=== PATIENT | female | born 1970 | race Caucasian/White ===

== ENCOUNTER 2024-09-03 09:39 | Outpatient (RCR) | payer MEDICAID, SELFPAY | END 2024-09-06 23:59 | disposition home or self-care (01) | LOC: SCTC 09:39 | PROVIDERS: PCP Family Medicine; Referring Provider Family Medicine; Visit Provider Internal Medicine Hematology & Oncology | DX: E53.8 Deficiency of other specified B group vitamins (principal) | CPT/HCPCS: 96372; J3420 ==

== ENCOUNTER 2024-10-06 11:51 | Emergency (ER) | payer MEDICAID, SELFPAY ==
[2024-10-06] VITALS (12 sets, daily range): BP systolic 125–175; BP diastolic 79–92; PULSE 55–84; RESP 10–18; TEMP 36.8–37.1; O2SAT 95–99; BMI 25.3
--- NOTE | 2024-10-06 | XR_ITS ---
MRI abdomen, without contrast. MRCP Date and time of exam: October 06, 2024 1759 hrs. Indications: Abdominal pain nausea vomiting chest pain beginning 3:00 AM this morning, elevated transaminase on liver function tests today Technique: Multiple axial and coronal images of the abdomen have been obtained with the Siemens 1.5T MRI scanner. Images obtained included T1 weighted transverse images, T2-weighted transverse images, T2-weighted transverse images fat-suppressed, T2 weighted haste fat suppressed transverse images, T1 weighted images, in and out of phase images, T2-weighted coronal images, breath hold, T2 weighted haze coronal images as well as T2 weighted coronal thick slab images, MRCP. Findings: Intrahepatic biliary tract dilatation Enlarged common hepatic duct 16 mm common bile duct 7 mm Abrupt tapering of the distal common bile duct, coronal image 15, no definite impacted stone No pancreatic mass or peripancreatic edema The proximal pancreatic duct is dilated up to 8 mm Spleen is not enlarged No hydronephrosis Aorta normal size No ascites Impression: Extrahepatic biliary tract dilatation with abrupt tapering of the common bile duct and dilatation of the proximal pancreatic duct Recommend ERCP follow-up to exclude malignant stricture at the ampulla
--- NOTE | 2024-10-06 11:54 | EKG_ITS ---
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
--- NOTE | 2024-10-06 12:12 | PD.EDRME ---
Rapid Medical Screening Exam RME Arrival date/time: 10/06/24 11:51 53-year-old female presents to the emergency department today complaints of nausea, vomiting, abdominal pain and chest pain ongoing since 3 AM Chief Complaint: Chest Pain Vital signs: Vital Signs Temperature 98.5 F 10/06/24 12:09 Pulse Rate 84 10/06/24 12:09 Respiratory Rate 18 10/06/24 12:09 Blood Pressure 154/92 H 10/06/24 12:09 Pulse Oximetry (%) 99 10/06/24 12:09 Oxygen Delivery Method Room Air 10/06/24 12:09
[2024-10-06 12:52] LABS: Collection Type, Urine Clean Catch
[2024-10-06] MEDS: ONDANSETRON ODT 4 MG TABRAP PO (12:54)
[2024-10-06 13:08] LABS: Basophils % (Auto) 0 % (0-2.5); Eosinophils % (Auto) 0 % (0-10); Hematocrit 43.6 % (36.0-46.0); Hemoglobin 14.4 g/dL (12.0-16.0); Immature Granulocytes % (Auto) 0 % (0-0); Immature Granulocytes Auto 0.01 Thou/mm3 (0.00-0.00); Lymphocytes # (Auto) 0.4 Thou/mm3 (1.0-4.8); Lymphocytes % (Auto) 8 % (10-50); Mean Corpuscular Hemoglobin 30.1 pg (25.0-35.0); Mean Corpuscular Volume 91 fL (80-100); Monocytes # (Auto) 0.3 Thou/mm3 (0.0-0.8); Monocytes % (Auto) 6 % (0-12); Neutrophils # (Auto) 4.4 Thou/mm3 (1.8-7.7); Neutrophils % (Auto) 86 % (37-80); Nucleated Red Blood Cell % 0 /100 WBC (0); Platelet Count 200 Thou/mm3 (140-440); RDW Standard Deviation 39.3 fL (36.4-46.3); Red Blood Count 4.79 Miln/mm3 (4.00-5.20); White Blood Count 5.1 Thou/mm3 (3.6-11.0)
[2024-10-06] MEDS: ALPRazoLAM 0.25 MG TABLET PO (13:11)
[2024-10-06 13:25] LABS: Alanine Aminotransferase 349 U/L (10-49); Albumin, Serum 4.5 gm/dL (3.5-5.0); Albumin/Globulin Ratio 1.7 (1.2-2.2); Alkaline Phosphatase 255 U/L (46-116); Anion Gap 9 (7-16); Aspartate Amino Transferase 829 U/L (0-34); BUN/Creatinine Ratio 17 Ratio (12-20); Bilirubin,Total 1.1 mg/dL (0.3-1.2); Blood Urea Nitrogen 17 mg/dL (9-23); Calcium 9.6 mg/dL (8.3-10.6); Calcium (Corrected) 9.6 mg/dL (8.5-10.1); Carbon Dioxide 25.8 mMol/L (20.0-31.0); Chloride 105 mMol/L (98-107); Estimated Creatinine Clearance 74.2 mL/min (>60); Globulin 2.7 gm/dL (2.3-3.5); Glucose 119 mg/dL (74-106); Lipase 138 U/L (12-53); Osmolality,Calculated 281 (275-295); Potassium 4.4 mMol/L (3.4-5.1); Sodium 140 mMol/L (136-145); Total Protein 7.2 gm/dL (5.7-8.2); Troponin I < 0.020 ng/mL (0.0-0.045); eGFR > 60 See Note
[2024-10-06 13:29] LABS: HCG Qualitative,Urine Negative
[2024-10-06 13:40] LABS: Amorphous Crystals,Urine Present (Absent); Bacteria,Urine Rare; Bilirubin,Urine Negative (Negative); Blood,Urine Negative (Negative); Clarity,Urine Clear (Clear/Hazy); Color,Urine Yellow (Lt Yel-Yel); Culture Indicated,Urine Not Indicated; Glucose, Urine Negative (Negative); Ketones,Urine Negative (Negative); Leukocyte Esterase,Urine Negative (Negative); Nitrite,Urine Negative (Negative); PH,Urine 6.5 (5.0-7.0); Protein,Urine 1+ (Neg - Trace); RBC,Urine 1 /hpf (0-3); Specific Gravity,Urine 1.028 (1.001-1.035); Squamous Epithelial Cell,Urine 6 /hpf (0-5); Urobilinogen,Urine OVER mg/dL (0.0-1.0); WBC,Urine 1 /hpf (0-5)
[2024-10-06 14:54] LABS: Partial Thromboplastin Time 26.1 Seconds (22.0-36.0); Prothrombin Time 10.9 Seconds (9.0-12.2)
--- NOTE | 2024-10-06 17:33 | PD.EDADULT ---
ED General RME/HPI General Chief complaint: Chest Pain Stated complaint: CHEST PAIN SINCE 0300, VOMITING Arrival date/time: 10/06/24 11:51 RME / HPI RME / HPI narrative: 10/06/24 11:51 53-year-old female presents to the emergency department today complaints of nausea, vomiting, abdominal pain and chest pain ongoing since 3 AM FERNANDO HPI: 53-year-old female with a history of gastric bypass, cholecystectomy who presents with epigastric pain, nausea, and vomiting waking her up at night at 3 AM. She states last night she had pizza for dinner and noted no abdominal symptoms and went to sleep around 10-11 o'clock without issues. She was awoken at 3 AM with some discomfort followed by nausea and vomiting. She has a persistent epigastric pain and vomiting since. She denies diarrhea or constipation. She denies recent illness such as fevers chills sweats or cough. Related Data Home Medications ?Medication ?Instructions ?Recorded ?Confirmed cetirizine 10 mg tablet 1 tab PO QDAY 06/26/22 03/15/23 omeprazole 20 mg capsule,delayed 1 cap PO QAM 06/26/22 03/15/23 release semaglutide 1 mg/dose (4 mg/3 mL) 1 mg subcut QWEEK 06/26/22 03/15/23 subcutaneous pen injector (Ozempic) losartan 100 1 tab PO QDAY 03/15/23 03/15/23 mg-hydrochlorothiazide 25 mg tablet Previous Rx's ?Medication ?Instructions ?Recorded cetirizine 5 mg-pseudoephedrine ER 1 tab PO BID #10 tabs 08/09/22 120 mg tablet,extended release,12hr amoxicillin 875 mg-potassium 1 tab PO BID #14 tabs 02/28/24 clavulanate 125 mg tablet fexofenadine 60 mg-pseudoephedrine 1 tab PO Q12H congestion #14 tabs 02/28/24 ER 120 mg tablet,ext.release,12 hr (Allergy Relief-D (fexofenadine)) Allergies Allergy/AdvReac Type Severity Reaction Status Date / Time codeine Allergy Severe Anaphylaxis Verified 10/06/24 11:52 Sulfa (Sulfonamide Allergy Severe Muscle Pain Verified 10/06/24 11:52 Antibiotics) Review of Systems Review of Systems Systems Reviewed: All systems reviewed, normal except as documented ED Exam Narrative Physical exam: GENERAL APPEARANCE: AxOx4, generally well-appearing, no acute distress. HEENT: NC, AT. MMM. EOMI, clear conjunctiva, oropharynx clear. NECK: Supple without lymphadenopathy. No stiffness or restricted ROM. HEART: Normal rate and regular rhythm, normal S1/S1, no m/r/g LUNGS: CTAB, moving air well. No crackles or wheezes are heard. ABDOMEN: Soft, nontender, nondistended with good bowel sounds heard. BACK: No midline C/T/L spine pain or deformity, No CVAT, no obvious deformity. EXTREMITIES: Without cyanosis, clubbing or edema. MUSCULOSKELETAL: FROM of all major joints, no chest tenderness NEUROLOGICAL: Grossly nonfocal. Alert and oriented, moving all 4 extremities. CN not formally tested but appear grossly intact. Observed to ambulate with normal gait. Skin: Warm and dry without any rash. Course Quality Measures none Orders Category Date Time Status EKG (ED ONLY) *Do not use* NOW Care 10/06/24 11:54 Completed MRI Screening NOW Care 10/06/24 14:19 Active EKG (ED Only) Stat Exams 10/06/24 11:54 Draft MR MRCP Stat Exams 10/06/24 Ordered CBC Stat Lab 10/06/24 12:29 Completed Comprehensive Metabolic Panel Stat Lab 10/06/24 12:29 Completed HCG Qualitative,Urine Stat Lab 10/06/24 12:46 Completed Lipase Stat Lab 10/06/24 12:29 Completed Partial Thromboplastin Time Stat Lab 10/06/24 12:29 Completed Prothrombin Time with INR Stat Lab 10/06/24 12:29 Completed Troponin I Stat Lab 10/06/24 12:29 Completed UA, C/S IF [Urinalysis, C/S if Indicated] Stat Lab 10/06/24 12:46 Completed ALPRazoLAM [Xanax] Med 10/06/24 13:07 Discontinued 0.25 mg PO X1 ONE Ondansetron Odt [Zofran Odt] Med 10/06/24 12:11 Discontinued 4 mg PO X1 ONE Reevaluation(s) Reevaluation #1: I reviewed the transaminitis laboratory results with patient notes that last year after her knee arthroscopy surgery she had a transient elevation in her liver enzymes. She was told it might be a complication of the surgery. She had hepatitis testing and ultrasounds were done at that time that she states should be on [her] record Time: 14:00 Vital Signs Vital signs: Vital Signs Temperature 98.5 F 10/06/24 12:09 Pulse Rate 84 10/06/24 12:09 Respiratory Rate 18 10/06/24 12:09 Blood Pressure 154/92 H 10/06/24 12:09 Pulse Oximetry (%) 99 10/06/24 12:09 Oxygen Delivery Method Room Air 10/06/24 12:09 SpO2 99% on room air patient is not hypoxic MDM Patient data External records reviewed:: [facility] previous records (Liver ultrasound done March 2023 during this episode of transaminitis showed a common bile duct of 15 mm) Clinical information provided by:: patient Social determinants that could affect healthcare access:: none Patient has the following chronic illnesses:: None How is presenting disease/condition affected by chronic disease/condition?: no chronic disease Evaluation data The following diagnostics were reviewed and interpreted by me:: lab results Lab and/or radiology exams considered but not ordered:: Workup in progress Interpretation Summary: Workup in progress Medications Medications considered but not ordered:: Workup in progress Medication administrations:: Medication Administration History Discontinued Medications Alprazolam (Alprazolam 0.25 Mg Tablet) 0.25 mg PO X1 ONE Stop: 10/06/24 13:08 Last Admin: 10/06/24 13:11 Dose: 0.25 mg Documented By: TOYIN Ondansetron HCl (Ondansetron Odt 4 Mg Tabrap) 4 mg PO X1 ONE; Protocol Stop: 10/06/24 12:12 Last Admin: 10/06/24 12:54 Dose: 4 mg Documented By: DB Above Consultations Consultation(s) initiated? (list below): No Diagnosis Differential Diagnosis ED Complaint MDM: Workup in progress Most likely diagnosis given after review of the tests above:: Workup in progress Admission Indicated Admission indicated?: not indicated Explain why admission is indicated or not indicated:: Signed out to oncoming provider, Dr. Snowden pending MRCP results and final disposition Admission Request Was there a request for admission?: No Disposition Plan Disposition Plan: other (specify) (Signed out to oncoming provider in stable condition) Medical Decision Making Differential Diagnosis Differential Diagnosis: Workup in progress Lab Data 10/06/24 12:29 10/06/24 12:29 Labs: Lab Results 10/06/24 10/06/24 Range/Units 12:29 12:46 WBC 5.1 (3.6-11.0) Thou/mm3 RBC 4.79 (4.00-5.20) Miln/mm3 Hgb 14.4 (12.0-16.0) g/dL Hct 43.6 (36.0-46.0) % MCV 91 (80-100) fL MCH 30.1 (25.0-35.0) pg MCHC 33.0 (31.0-37.0) g/dl RDW Std Deviation 39.3 (36.4-46.3) fL Plt Count 200 (140-440) Thou/mm3 Neut % (Auto) 86 H (37-80) % Lymph % (Auto) 8 L (10-50) % [place] % (Auto) 6 (0-12) % Eos % (Auto) 0 (0-10) % Baso % (Auto) 0 (0-2.5) % Neut # (Auto) 4.4 (1.8-7.7) Thou/mm3 Lymph # (Auto) 0.4 L (1.0-4.8) Thou/mm3 [place] # (Auto) 0.3 (0.0-0.8) Thou/mm3 Eos # (Auto) 0.0 (0.0-0.5) Thou/mm3 Baso # (Auto) 0.0 (0.0-0.2) Thou/mm3 Immature Gran # (Auto) 0.01 H (0.00-0.00) Thou/mm3 Absolute Nucleated RBC 0.00 (0.00-0.00) Thou/mm3 Immature Gran % 0 (0-0) % Nucleated RBC % 0 (0) /100 WBC PT 10.9 (9.0-12.2) Seconds INR 1.0 (0.9-1.3) APTT 26.1 (22.0-36.0) Seconds Sodium 140 (136-145) mMol/L Potassium 4.4 (3.4-5.1) mMol/L Chloride 105 (98-107) mMol/L Carbon Dioxide 25.8 (20.0-31.0) mMol/L Anion Gap 9 (7-16) BUN 17 (9-23) mg/dL Creatinine 1.0 (0.6-1.3) mg/dL Estim Creat Clear Calc 74.2 (>60) mL/min eGFR > 60 (60 - ) See Note BUN/Creatinine Ratio 17 (12-20) Ratio Glucose 119 H (74-106) mg/dL Calculated Osmolality 281 (275-295) Calcium 9.6 (8.3-10.6) mg/dL Corrected Calcium 9.6 (8.5-10.1) mg/dL Total Bilirubin 1.1 (0.3-1.2) mg/dL AST 829 H* (0-34) U/L ALT 349 H (10-49) U/L Alkaline Phosphatase 255 H (46-116) U/L Troponin I < 0.020 (0.0-0.045) ng/mL Total Protein 7.2 (5.7-8.2) gm/dL Albumin 4.5 (3.5-5.0) gm/dL Globulin 2.7 (2.3-3.5) gm/dL Albumin/Globulin Ratio 1.7 (1.2-2.2) Lipase 138 H (12-53) U/L Ur Collection Type Clean Catch Urine Color Yellow (Lt Yel-Yel) Urine Clarity Clear (Clear/Hazy) Urine pH 6.5 (5.0-7.0) Ur Specific [place] 1.028 (1.001-1.035) Urine Protein 1+ A (Neg - Trace) Urine Glucose (UA) Negative (Negative) Urine Ketones Negative (Negative) Urine Blood Negative (Negative) Urine Nitrite Negative (Negative) Urine Bilirubin Negative (Negative) Urine Urobilinogen (Auto) OVER (0.0-1.0) mg/dL Ur Leukocyte Esterase Negative (Negative) Urine RBC 1 (0-3) /hpf Urine WBC 1 (0-5) /hpf Ur Squamous Epith Cells 6 H (0-5) /hpf Amorphous Crystals Present A (Absent) Urine Bacteria Rare (None) Ur Culture Indicated? Not Indicated Urine HCG, Qual Negative Discharge Plan Prescriptions/Referrals Prescriptions/Med Rec: No Action cetirizine 10 mg tablet 1 tab PO QDAY Patient Comments: TAKE 1 TABLET BY MOUTH EVERY DAY omeprazole 20 mg capsule,delayed release(DR/EC) 1 cap PO QAM Patient Comments: TAKE 1 CAPSULE BY MOUTH EVERY DAY 30 MINUTES BEFORE MORNING MEAL FOR 30 DAYS Ozempic 1 mg/dose (4 mg/3 mL) pen injector 1 mg SUBCUT QWEEK Patient Comments: INJECT 1MG SUBCUTANEOUSLY ONCE A WEEK cetirizine-pseudoephedrine 5-120 mg tablet extended release 12 hr 1 tab PO BID Qty: 10 0RF losartan-hydrochlorothiazide 100-25 mg Tablet 1 tab PO QDAY amoxicillin-pot clavulanate 875-125 mg tablet 1 tab PO BID Qty: 14 0RF fexofenadine-pseudoephedrine [Allergy Relief-D(fexofenadine)] 60-120 mg tablet extended release 12 hr 1 tab PO Q12H Qty: 14 0RF Referrals: Josee Richards PA-C [Primary Care Provider] - In 1 week Problem List Clinical Impression: Acute epigastric pain, Transaminitis Patient/Caregiver Discharge Instructions Print Language: Croatian
--- NOTE | 2024-10-06 18:14 | EDNOTE_ITS ---
Emergency Room Addendum Addendum Narrative: 1800: Care assumed from Dr. Mayfield the previous shift emergency physician. Past medical, surgical, social and family history reviewed. Vitals and home medications reviewed. Results and treatment plan discussed. I will assume the care of the patient at this time and will follow the patient, pending MRCP. Please refer to the emergency department record for history and examination from initial visit. 1914: Discussed case with [Dr. Hui] from [GI] regarding [consultation]. Discussed patients ED course, exam findings, labs, and radiology results. States the patient needs to be transferred for an emergent ERCP. 1926: Discussed results with the patient at bedside. Patient is agreeable to be transferred. She is currently complaining of a headache and epigastric pain. Meds ordered. 2255: Spoke with [facility]'s transfer center. States they will run it by their GI provider in [place] due to [place] being at capacity. Awaiting callback at this time. 2315: Spoke with CHELY Crowe from [facility], who accepts the patient for transfer. RADIOLOGY RESULTS: [facility] Report Signed Patient: LESTER BARONE [facility]. Record#: [id number] Birthdate: 1970 Age/Sex: 53 / F Location: [facility] Attending Dr: Ordering Physician: Fernandez Mayfield MD Date of Service: 10/06/24 Procedure(s): MR MRCP Accession Number(s): [id number] cc: Josee Richards PA-C; Fernandez Mayfield MD; Geovany Tenorio MD~ MRI abdomen, without contrast. MRCP Date and time of exam: October 06, 2024 1759 hrs. Indications: Abdominal pain nausea vomiting chest pain beginning 3:00 AM this morning, elevated transaminase on liver function tests today Technique: Multiple axial and coronal images of the abdomen have been obtained with the Siemens 1.5T MRI scanner. Images obtained included T1 weighted transverse images, T2-weighted transverse images, T2-weighted transverse images fat-suppressed, T2 weighted haste fat suppressed transverse images, T1 weighted images, in and out of phase images, T2-weighted coronal images, breath hold, T2 weighted haze coronal images as well as T2 weighted coronal thick slab images, MRCP. Findings: Intrahepatic biliary tract dilatation Enlarged common hepatic duct 16 mm common bile duct 7 mm Abrupt tapering of the distal common bile duct, coronal image 15, no definite impacted stone No pancreatic mass or peripancreatic edema The proximal pancreatic duct is dilated up to 8 mm Spleen is not enlarged No hydronephrosis Aorta normal size No ascites Impression: Extrahepatic biliary tract dilatation with abrupt tapering of the common bile duct and dilatation of the proximal pancreatic duct Recommend ERCP follow-up to exclude malignant stricture at the ampulla Dictated By: Geovany Tenorio MD Signed By: <Electronically signed by Geovany Tenorio MD in [place]> 10/06/24 [id number]
[2024-10-06] MEDS: KETOROLAC INJ 30 MG/ML VIAL 15 MG IVP (19:57)
[2024-10-06] MEDS: METOCLOPRAMIDE INJ 5 MG/ML VIAL 2 ML IVP ×2 (19:58)
[2024-10-06] MEDS: LORazepam 2 MG/ML VIAL 0.5 MG IVP (19:59)
[2024-10-06] MEDS: DiphenhydrAMINE INJ 50 MG/ML VIAL 12.5 MG IVP (19:59)
--- NOTE | 2024-10-06 20:20 | PC.NURSE ---
FAXED INFORMATION AND CALLED [facility], AT THIS TIME DENIED FOR FULL CAPACITY.
--- NOTE | 2024-10-06 20:40 | PC.NURSE ---
FAXED INFORMATION AND CALLED [facility] .
--- NOTE | 2024-10-06 23:01 | PC.NURSE ---
FAXED INFORMATION AND CALLED [facility], [facility] F[facility], THEY WILL PRESENT CASE TO [facility].
[2024-10-07] VITALS (7 sets, daily range): BP systolic 106–140; BP diastolic 66–83; PULSE 46–73; RESP 13–16; TEMP 37–37.1; O2SAT 96–97
--- NOTE | 2024-10-07 03:10 | PC.NURSE ---
SIGIFREDO FROM [facility] CALLED AND INFORMED ME THAT PT IS ACCEPTED TO [facility] BY DR. BURROUGHS.
--- NOTE | 2024-10-07 05:07 | PC.NURSE ---
THIS PT IS GOING TO [address] AND REPORT # [phone].
== END 2024-10-07 06:06 | disposition short-term general hospital (02) ==
PROVIDERS: Emergency Medicine; Nurse Practitioner Primary Care; Emergency Provider Emergency Medicine; PCP Physician Assistant Medical
DX: K83.8 Other specified diseases of biliary tract (principal); I49.3 Ventricular premature depolarization
CPT/HCPCS: 36415; 80053; 81001; 81025; 83690; 84484; 85025; 85610; 85730; 93005; 96374; 96375; 99285; J1200; J1885; J2060; J2765; Q0162; S8037; 74181; A9270

== ENCOUNTER 2024-10-30 14:33 | Outpatient (RCR) | payer MEDICAID, SELFPAY | END 2024-11-07 23:59 | disposition home or self-care (01) | LOC: SCTC 14:33 | PROVIDERS: PCP Family Medicine; Referring Provider Family Medicine; Visit Provider Nurse Practitioner Family | DX: D50.9 Iron deficiency anemia, unspecified (principal); E53.8 Deficiency of other specified B group vitamins; Z98.84 Bariatric surgery status; E11.22 Type 2 diabetes mellitus with diabetic chronic kidney disease; N18.9 Chronic kidney disease, unspecified | CPT/HCPCS: 99212; G0463 ==

== ENCOUNTER 2024-11-19 08:05 | Day surgery (SDC) | payer MEDICAID, SELFPAY ==
--- NOTE | 2024-11-18 06:00 | EKG_ITS ---
[facility] Test Date: 2024-11-18 Pat Name: LESTER BARONE Department: Room: - Gender: Female Director Facilities Maintenance: RTSJC : 1970 Requested By: Scooter Warner Order Number: [id number] Reading MD: Scooter Warner Measurements Intervals [place] Rate: 64 P: 47 TN: 134 QRS: 56 QRSD: 90 T: 47 QT: 406 QTc: 420 Interpretive Statements SINUS RHYTHM Compared to ECG 10/06/2024 12:12:59 Ventricular premature complex(es) no longer present T-wave abnormality no longer present /store/S0/[id number]/ecg/[id number].pdf
[2024-11-18 08:23] VITALS: BMI 25.2
[2024-11-18 09:22] LABS: Basophils % (Auto) 1 % (0-2.5); Eosinophils # (Auto) 0.1 Thou/mm3 (0.0-0.5); Eosinophils % (Auto) 1 % (0-10); Hematocrit 37.3 % (36.0-46.0); Hemoglobin 11.9 g/dL (12.0-16.0); Immature Granulocytes % (Auto) 0 % (0-0); Immature Granulocytes Auto 0.03 Thou/mm3 (0.00-0.00); Lymphocytes # (Auto) 1.2 Thou/mm3 (1.0-4.8); Lymphocytes % (Auto) 17 % (10-50); Mean Corpuscular HGB Conc 31.9 g/dl (31.0-37.0); Mean Corpuscular Volume 91 fL (80-100); Monocytes # (Auto) 0.4 Thou/mm3 (0.0-0.8); Monocytes % (Auto) 6 % (0-12); Neutrophils # (Auto) 5.2 Thou/mm3 (1.8-7.7); Neutrophils % (Auto) 75 % (37-80); Nucleated Red Blood Cell % 0 /100 WBC (0); Platelet Count 305 Thou/mm3 (140-440); RDW Standard Deviation 39.9 fL (36.4-46.3); Red Blood Count 4.11 Miln/mm3 (4.00-5.20); White Blood Count 6.9 Thou/mm3 (3.6-11.0)
[2024-11-18 09:38] LABS: Alanine Aminotransferase 11 U/L (10-49); Albumin, Serum 3.9 gm/dL (3.5-5.0); Albumin/Globulin Ratio 1.4 (1.2-2.2); Alkaline Phosphatase 119 U/L (46-116); Anion Gap 8 (7-16); Aspartate Amino Transferase 15 U/L (0-34); BUN/Creatinine Ratio 13 Ratio (12-20); Bilirubin,Total 0.5 mg/dL (0.3-1.2); Blood Urea Nitrogen 13 mg/dL (9-23); Calcium 9.6 mg/dL (8.3-10.6); Calcium (Corrected) 9.7 mg/dL (8.5-10.1); Carbon Dioxide 26.1 mMol/L (20.0-31.0); Chloride 113 mMol/L (98-107); Globulin 2.7 gm/dL (2.3-3.5); Glucose 52 mg/dL (74-106); Osmolality,Calculated 289 (275-295); Sodium 147 mMol/L (136-145); Total Protein 6.6 gm/dL (5.7-8.2); eGFR > 60 See Note
[2024-11-18 10:17] LABS: Hepatitis A Antibody IgM Non Reactive (Non React); Hepatitis B Core Antibody IgM Non Reactive (Non React); Hepatitis B Surface Antigen Non Reactive (Non React); Hepatitis C Antibody Non Reactive (Non React)
[2024-11-18 15:46] LABS: HIV (1&2) Antibody Rapid Non-Reactive
[2024-11-19] VITALS (7 sets, daily range): BP systolic 135–162; BP diastolic 78–89; PULSE 61–78; RESP 12–18; TEMP 36.3–37.1; O2SAT 95–100; BMI 25.0
[2024-11-19] MEDS: RINGERS LACTATED 1000 ML 1,000 ML 20 ML IV (08:58)
--- NOTE | 2024-11-19 09:46 | PD.GYNHP ---
Documentation for date of: 11/19/24 FIELD SERVICE COORDINATOR - HPI History of Present Illness History of present illness: Ms. BARONE is a 54 year old female para 3 is admitted for a diagnostic hysteroscopy. Patient was seen in the clinic earlier for a cervical polyp associated postmenopausal bleeding. History of chronic hypertension on losartan and type 2 diabetes on Ozempic. Meds Home Medications and Allergies Home Medications ?Medication ?Instructions ?Recorded ?Confirmed ?Type semaglutide 1 mg/dose (4 mg/3 mL) 1 mg subcut QWEEK 06/26/22 11/18/24 History subcutaneous pen injector (Ozempic) losartan 50 mg tablet 50 mg PO DAILY 11/18/24 11/19/24 History trazodone 50 mg tablet 50 mg PO HS 11/18/24 11/19/24 History Allergies Allergy/AdvReac Type Severity Reaction Status Date / Time codeine Allergy Severe Anaphylaxis Verified 11/19/24 08:59 Sulfa (Sulfonamide Allergy Severe Muscle Pain Verified 11/19/24 08:59 Antibiotics) Exam - FIELD SERVICE COORDINATOR Vital Signs Temp Pulse Resp BP Pulse Ox 98.7 F 61 14 135/82 H 95 11/19/24 08:37 11/19/24 08:37 11/19/24 08:37 11/19/24 08:37 11/19/24 08:37 Constitutional Constitutional: no acute distress Routine HEENT Exam Head: Present normocephalic and atraumatic Eye: Present EOMI and PERRL ENT: Present mucous membranes moist Routine Neck Exam Neck: Present supple and trachea midline Routine Respiratory Exam Respiratory: Present chest non-tender, lungs clear, normal breath sounds and no resp distress Routine Cardiovascular Exam Cardiovascular: Present RRR Routine Abdominal Exam Abdominal: Present soft and normoactive bowel sounds Routine Extremities Exam Extremities: Present full ROM Routine Skin Exam Skin: Present intact and dry Routine Neurological Exam Neurological: Present alert, oriented X3 and CN II-XII intact Routine Psychiatric Exam Psychiatric: Present normal affect and normal thought process FIELD SERVICE COORDINATOR - Results Labs 11/18/24 08:52 11/18/24 08:52 Labs: Short CBC 11/18/24 Range/Units 08:52 WBC 6.9 (3.6-11.0) Thou/mm3 Hgb 11.9 L (12.0-16.0) g/dL Hct 37.3 (36.0-46.0) % Plt Count 305 (140-440) Thou/mm3 Impressions Impression: 54-year-old para 3 admitted for diagnostic hysteroscopy, polypectomy, endometrial biopsy Well-informed of risks of hysteroscopy including perforation, bleeding, infection Assessment and Plan Additional Assessment & Plan Additional Plan: No routine antibiotic prophylaxis needed Quality Measures Quality Measures VTE prophylaxis
--- NOTE | 2024-11-19 10:10 | ESOP_ITS ---
Operative Note - FILL PLANT OPERATOR Procedure Date of procedure: 11/19/24 Procedure Performed: Hysreoscopic polypectomy D&C Indication: Postmenopausal bleeding Cervical polyp on exam Pre-Op diagnosis: same Post-Op diagnosis: same Anesthesia type: General Procedure description: The patient was seen prior to surgery. The potential benefits and risks of the procedure, the likelihood of success, and the problems related to recuperation have been discussed with patient who agrees to proceed. The possible results of nontreatment and significant alternatives to the proposed procedure have also been explained, along with the risks and benefits of the alternatives. Risks and benefits of chosen anesthetic/sedation and possible use of blood/blood products (if appropriate) were discussed.The patient was identified as Gaston Griffith and the procedure verified. A time out was held reviewing the patient identifiers, procedure planned and allergies. At this point the procedure was begun. The patient was positioned and prepped in routine fashion in the dorsal lithotomy position using yellowfin stirups. On examination under anesthesia,the uterus was anteverted to a normal size. Bladder was drained by catheter. A weighted speculum was then placed into the patient's posterior vagina. A jesus was used to expose the anterior lip of the cervix which was then grasped by a single tooth tenaculum.The cervix was seen to have a 1 cm polyp , that was held by stone holding forcep and twisted in 360 degrees untill yash polyp was aremoved.Cervix was then very easily dilated to a size 6 Hegar dilator. The hysteroscope was then placed under direct visualization. Warm lactated Ringer's was used as a distention medium. Endometrial poyp was seen at [facility] fundus , which was removed using myosure reach device by multiple rotatory movements. The procedure was terminated by doinga D&C from al the [facility] of [facility] uterus. Estimated blood loss (ml): 1 Findings: endometrial polyp cervical polyp Surgical staff Operation Date: 11/19/24 10:15 <No data on this case meets the specified criteria> Diagnosis Problem List Completed Was Problem List Reviewed/Reconciled?: Yes
--- NOTE | 2024-11-19 10:52 | SUR.PHASEI ---
pt received from OR in recovery bay 7. pt obtunded, breathing unlabored on 8l oxymask, oral airway in place. v/s stable. pt dressing periapd cdi. report received from Andie FRIEDMAN and Margot Shelton.
--- NOTE | 2024-11-19 11:12 | SUR.PHASEI ---
pt able to tolerate oral fluids without difficulty swallowing or vomiting.
--- NOTE | 2024-11-19 11:52 | SUR.PHASEII ---
pt awake and alert, breathing unlabored on room air. v/s stable. pt dressing to periapd cdi. pt able to ambulate to wheelchair with steady gait. d/c instructions given with daughter Jen in room, all questions answered. pt d/c via wheelchair with all belongings.
== END 2024-11-19 11:52 | disposition home or self-care (01) ==
PROVIDERS: Anesthesiology; PCP Physician Assistant Medical; Referring Provider Student in an Organized Health Care Education/Training Program; Visit Provider Student in an Organized Health Care Education/Training Program
PROC: 0UJD8ZZ Inspection of Uterus and Cervix, Via Natural or Artificial Opening Endoscopic (ICD-10-PCS; CPT 58555; principal; 2024-11-19 10:00)
DX: N84.1 Polyp of cervix uteri (principal); I10 Essential (primary) hypertension; E11.9 Type 2 diabetes mellitus without complications; Z01.810 Encounter for preprocedural cardiovascular examination
CPT/HCPCS: 58558; 36415; 80053; 80074; 85025; 86703; 86850; 86900; 86901; 93005; A4217; A4649; J0131; J2250; J2405; J2704; J2765; J3010; J3490; J7120

== ENCOUNTER 2024-11-27 14:29 | Outpatient (RCR) | payer MEDICAID, SELFPAY | END 2024-12-05 23:59 | disposition home or self-care (01) | LOC: SCTC 14:29 | PROVIDERS: PCP Physician Assistant Medical; Referring Provider Physician Assistant Medical; Visit Provider Nurse Practitioner Family | DX: E53.8 Deficiency of other specified B group vitamins (principal); D50.9 Iron deficiency anemia, unspecified; Z98.84 Bariatric surgery status | CPT/HCPCS: 96372; J3420 ==

== ENCOUNTER 2024-12-25 14:22 | Outpatient (RCR) | payer MEDICAID, SELFPAY | END 2025-01-05 23:59 | disposition home or self-care (01) | LOC: SCTC 14:22 | PROVIDERS: PCP Physician Assistant Medical; Referring Provider Physician Assistant Medical; Visit Provider Nurse Practitioner Family | DX: E53.8 Deficiency of other specified B group vitamins (principal); D50.9 Iron deficiency anemia, unspecified; Z98.84 Bariatric surgery status; E11.22 Type 2 diabetes mellitus with diabetic chronic kidney disease; I12.9 Hypertensive chronic kidney disease with stage 1 through stage 4 chronic kidney disease, or unspecified chronic kidney disease; N18.9 Chronic kidney disease, unspecified | CPT/HCPCS: 96372; J3420 ==

== ENCOUNTER 2025-01-22 14:33 | Outpatient (RCR) | payer MEDICAID, SELFPAY | END 2025-02-04 23:59 | disposition home or self-care (01) | LOC: SCTC 14:33 | PROVIDERS: PCP Physician Assistant Medical; Referring Provider Physician Assistant Medical; Visit Provider Nurse Practitioner Family | DX: E53.8 Deficiency of other specified B group vitamins (principal); D50.9 Iron deficiency anemia, unspecified; Z98.84 Bariatric surgery status | CPT/HCPCS: 96372; J3420 ==

== ENCOUNTER → 2025-02-06 | Outpatient (CLI) | payer MEDICAID, SELFPAY ==
[2025-02-05 16:51] LABS: Basophils % (Auto) 1 % (0-2.5); Eosinophils # (Auto) 0.1 Thou/mm3 (0.0-0.5); Eosinophils % (Auto) 1 % (0-10); Hematocrit 40.2 % (36.0-46.0); Hemoglobin 13.2 g/dL (12.0-16.0); Immature Granulocytes % (Auto) 0 % (0-0); Immature Granulocytes Auto 0.01 Thou/mm3 (0.00-0.00); Lymphocytes # (Auto) 1.2 Thou/mm3 (1.0-4.8); Lymphocytes % (Auto) 19 % (10-50); Mean Corpuscular HGB Conc 32.8 g/dl (31.0-37.0); Mean Corpuscular Hemoglobin 29.1 pg (25.0-35.0); Mean Corpuscular Volume 89 fL (80-100); Monocytes # (Auto) 0.4 Thou/mm3 (0.0-0.8); Monocytes % (Auto) 7 % (0-12); Neutrophils # (Auto) 4.8 Thou/mm3 (1.8-7.7); Neutrophils % (Auto) 73 % (37-80); Nucleated Red Blood Cell % 0 /100 WBC (0); Platelet Count 209 Thou/mm3 (140-440); RDW Standard Deviation 42.3 fL (36.4-46.3); Red Blood Count 4.53 Miln/mm3 (4.00-5.20); White Blood Count 6.5 Thou/mm3 (3.6-11.0)
[2025-02-05 17:13] LABS: Alanine Aminotransferase 11 U/L (10-49); Albumin, Serum 4.1 gm/dL (3.5-5.0); Albumin/Globulin Ratio 1.6 (1.2-2.2); Alkaline Phosphatase 110 U/L (46-116); Anion Gap 6 (7-16); Aspartate Amino Transferase 19 U/L (0-34); BUN/Creatinine Ratio 19 Ratio (12-20); Bilirubin,Total 0.3 mg/dL (0.3-1.2); Blood Urea Nitrogen 26 mg/dL (9-23); Carbon Dioxide 29.1 mMol/L (20.0-31.0); Chloride 110 mMol/L (98-107); Creatinine (Component) 1.4 mg/dL (0.6-1.3); Globulin 2.6 gm/dL (2.3-3.5); Glucose 80 mg/dL (74-106); Osmolality,Calculated 292 (275-295); Potassium 4.3 mMol/L (3.4-5.1); Sodium 145 mMol/L (136-145); Total Protein 6.7 gm/dL (5.7-8.2); eGFR 44 See Note
--- NOTE | 2025-02-06 15:00 | XR_ITS ---
Examination: CT chest with intravenous contrast 2-D sagittal and coronal reconstructions Exam date and time: February 06, 2025 1600 hours INDICATIONS: Diagnosis indications anemia CTDI:vol (mGy) 12.1 DLP: (mGycm) 449 Technique: Multiple axial sections of the thorax have been obtained. Sections have been obtained, 3 mm slice thickness. Mediastinal and lung density settings have been obtained. Intravenous contrast administered, 60 cc Isovue-370. 2-D sagittal, coronal images obtained. Low dose protocols were performed. One or more of the following dose reduction techniques were used; automated exposure control, adjustment of the mA and/or KV according to patient size, use of iterative reconstruction technique. Findings: No thoracic aortic aneurysm dilatation No pulmonary artery filling defects Mild enlargement left atrium No paratracheal tracheobronchial or bronchopulmonary adenopathy 5 mm pulmonary nodule right midlung 2 mm pulmonary nodule left lower lobe Significant pneumonia left base No visualized liver splenic lesion Gastric sutures Absent gallbladder No pancreatic mass Moderate osteopenia IMPRESSION: Significant pneumonia left base Noncalcified pulmonary nodules as above, with this study as baseline recommend 6 month follow-up CT chest without contrast
== END | disposition home or self-care (01) ==
LOC: CCTX 14:44
PROVIDERS: Referring Provider Nurse Practitioner Family; Visit Provider Nurse Practitioner Family
DX: J18.9 Pneumonia, unspecified organism (principal); R91.8 Other nonspecific abnormal finding of lung field
CPT/HCPCS: 36415; 71260; 80053; 85025; A4649; Q9967

== ENCOUNTER 2025-02-24 14:03 | Outpatient (RCR) | payer MEDICAID, SELFPAY | END 2025-03-07 23:59 | disposition home or self-care (01) | LOC: SCTC 14:03 | PROVIDERS: PCP Physician Assistant Medical; Referring Provider Nurse Practitioner Family; Visit Provider Nurse Practitioner Family | DX: E53.8 Deficiency of other specified B group vitamins (principal); D50.9 Iron deficiency anemia, unspecified; Z98.84 Bariatric surgery status; R91.8 Other nonspecific abnormal finding of lung field; R53.83 Other fatigue; J18.9 Pneumonia, unspecified organism | CPT/HCPCS: 96372; 99212; J3420; G0463 ==

== ENCOUNTER 2025-03-26 14:13 | Outpatient (RCR) | payer MEDICAID, SELFPAY | END 2025-04-06 23:59 | disposition home or self-care (01) | LOC: SCTC 14:13 | PROVIDERS: PCP Physician Assistant Medical; Referring Provider Physician Assistant Medical; Visit Provider Nurse Practitioner Family | DX: D50.9 Iron deficiency anemia, unspecified (principal); Z98.84 Bariatric surgery status; E53.8 Deficiency of other specified B group vitamins; R91.8 Other nonspecific abnormal finding of lung field; J18.9 Pneumonia, unspecified organism; N18.9 Chronic kidney disease, unspecified; I51.7 Cardiomegaly | CPT/HCPCS: 96365; 96367; 96368; 96372; 96375; 99212; J1756; J2919; J3420; J3490; J7040; J7050; G0463 ==

== ENCOUNTER 2025-04-30 13:52 | Outpatient (RCR) | payer MEDICAID, SELFPAY | END 2025-05-07 23:59 | disposition home or self-care (01) | LOC: SCTC 13:52 | PROVIDERS: PCP Physician Assistant Medical; Referring Provider Physician Assistant Medical; Visit Provider Nurse Practitioner Family | DX: D50.9 Iron deficiency anemia, unspecified (principal); E53.8 Deficiency of other specified B group vitamins; N18.9 Chronic kidney disease, unspecified; R91.8 Other nonspecific abnormal finding of lung field; Z98.84 Bariatric surgery status | CPT/HCPCS: 96365; 96372; 96375; J1756; J2919; J3420; J3490; J7040; J7050 ==

== ENCOUNTER → 2025-05-20 | Outpatient (CLI) | payer MEDICAID, SELFPAY ==
[2025-05-20 10:05] LABS: Basophils # (Auto) 0.0 Thou/mm3 (0.0-0.2); Basophils % (Auto) 1 % (0-2.5); Eosinophils # (Auto) 0.0 Thou/mm3 (0.0-0.5); Eosinophils % (Auto) 1 % (0-10); Hematocrit 42.9 % (36.0-46.0); Hemoglobin 13.9 g/dL (12.0-16.0); Immature Granulocytes Auto 0.01 Thou/mm3 (0.00-0.00); Lymphocytes # (Auto) 1.3 Thou/mm3 (1.0-4.8); Lymphocytes % (Auto) 35 % (10-50); Mean Corpuscular HGB Conc 32.4 g/dl (31.0-37.0); Mean Corpuscular Hemoglobin 30.5 pg (25.0-35.0); Mean Corpuscular Volume 94 fL (80-100); Monocytes # (Auto) 0.3 Thou/mm3 (0.0-0.8); Monocytes % (Auto) 8 % (0-12); Neutrophils # (Auto) 2.0 Thou/mm3 (1.8-7.7); Neutrophils % (Auto) 55 % (37-80); Nucleated Red Blood Cell # 0.00 Thou/mm3 (0.00-0.00); Nucleated Red Blood Cell % 0 /100 WBC (0); Platelet Count 175 Thou/mm3 (140-440); RDW Standard Deviation 46.4 fL (36.4-46.3); Red Blood Count 4.56 Miln/mm3 (4.00-5.20); White Blood Count 3.6 Thou/mm3 (3.6-11.0)
[2025-05-20 10:16] LABS: Alanine Aminotransferase 11 U/L (10-49); Albumin, Serum 4.2 gm/dL (3.5-5.0); Albumin/Globulin Ratio 2.0 (1.2-2.2); Alkaline Phosphatase 87 U/L (46-116); Anion Gap 6 (7-16); Aspartate Amino Transferase 19 U/L (0-34); BUN/Creatinine Ratio 14 Ratio (12-20); Bilirubin,Total 0.7 mg/dL (0.3-1.2); Blood Urea Nitrogen 17 mg/dL (9-23); Calcium 10.0 mg/dL (8.3-10.6); Calcium (Corrected) 10.0 mg/dL (8.5-10.1); Carbon Dioxide 26.1 mMol/L (20.0-31.0); Chloride 111 mMol/L (98-107); Creatinine (Component) 1.2 mg/dL (0.6-1.3); Globulin 2.1 gm/dL (2.3-3.5); Glucose 81 mg/dL (74-106); Osmolality,Calculated 285 (275-295); Potassium 4.0 mMol/L (3.4-5.1); Sodium 143 mMol/L (136-145); Total Protein 6.3 gm/dL (5.7-8.2); eGFR 53 See Note
--- NOTE | 2025-05-20 11:27 | XR_ITS ---
Examination: CT chest, without intravenous contrast. Sagittal and coronal 2-D reconstructions. Exam date and time: May 20, 2025 1336 hours Comparison February 06, 2025 INDICATIONS: 5 mm pulmonary nodule right midlung 2 mm pulmonary nodule left lower lobe on CT chest February 06, 2025, shortness of breath 3 months CTDI:vol (mGy) 10.1 DLP: (mGycm) 395 Technique: Multiple 3.0 mm axial sections of the chest to been obtained. Bone and lung density settings are obtained. Sagittal and coronal 2-D reconstructions have been obtained. Low dose protocols were performed. One or more of the following dose reduction techniques were used; automated exposure control, adjustment of the mA and/or KV according to patient size, use of iterative reconstruction technique. Findings: No thoracic aortic aneurysm dilatation Pulmonary artery segments are not enlarged Mild enlargement cardiac contour 5 mm pulmonary nodule right midlung again noted The nodular parenchymal disease in the left lower lobe noted on the prior study is no longer identified but there is a residual 10 mm pulmonary nodule left lower lobe 2 mm pulmonary nodule left lower lobe again depicted No liver or splenic lesions Absent gallbladder IMPRESSION: Recommend continued 6 month follow-up CT chest without contrast to document stability of pulmonary nodules described above
== END | disposition home or self-care (01) ==
PROVIDERS: PCP Physician Assistant Medical; Referring Provider Nurse Practitioner Family; Visit Provider Nurse Practitioner Family
DX: R91.8 Other nonspecific abnormal finding of lung field (principal); D50.9 Iron deficiency anemia, unspecified
CPT/HCPCS: 36415; 71250; 80053; 85025

== ENCOUNTER 2025-06-01 15:32 | Outpatient (RCR) | payer MEDICAID, SELFPAY | END 2025-06-07 23:59 | disposition home or self-care (01) | LOC: SCTC 15:32 | PROVIDERS: PCP Physician Assistant Medical; Referring Provider Physician Assistant Medical; Visit Provider Nurse Practitioner Family | DX: D50.9 Iron deficiency anemia, unspecified (principal); E53.8 Deficiency of other specified B group vitamins; Z98.84 Bariatric surgery status; N18.9 Chronic kidney disease, unspecified; R91.8 Other nonspecific abnormal finding of lung field | CPT/HCPCS: 96365; 96372; 96375; 99212; A4216; J1756; J2919; J3420; J3490; J7040; J7050; G0463 ==

== ENCOUNTER 2025-07-09 15:06 | Outpatient (RCR) | payer MEDICAID, SELFPAY | END 2025-08-07 23:59 | disposition home or self-care (01) | LOC: SCTC 15:06 | PROVIDERS: PCP Physician Assistant Medical; Referring Provider Physician Assistant Medical; Visit Provider Nurse Practitioner Family | DX: E53.8 Deficiency of other specified B group vitamins (principal); D50.9 Iron deficiency anemia, unspecified | CPT/HCPCS: 96372; J3420 ==

== ENCOUNTER → 2025-08-19 | Outpatient (CLI) | payer MEDICAID, SELFPAY ==
--- NOTE | 2025-08-19 09:30 | XR_ITS ---
Examination: CT chest, without intravenous contrast. Sagittal and coronal 2-D reconstructions. Exam date and time: August 19, 2025, 0929 hours INDICATIONS: Pulmonary nodules on CT chest May 20, 2025, February 06, 2025 CTDI:vol (mGy) 9.80 DLP: (mGycm) 360 Technique: Multiple 3.0 mm axial sections of the chest to been obtained. Bone and lung density settings are obtained. Sagittal and coronal 2-D reconstructions have been obtained. Low dose protocols were performed. One or more of the following dose reduction techniques were used; automated exposure control, adjustment of the mA and/or KV according to patient size, use of iterative reconstruction technique. Findings: No thoracic aortic aneurysm dilatation Pulmonary artery segments are not enlarged Mild calcification left anterior descending coronary artery Stable bilateral pulmonary nodules compared with February 06, 2025 Nodular parenchymal disease left lower lobe is no longer identified Gastric sutures Absent gallbladder No pancreatic mass 2 mm right renal calculus IMPRESSION: Stable pulmonary nodules dating to February 06, 2025 chest Nodular parenchymal disease left lower lobe is no longer identified
== END | disposition home or self-care (01) ==
PROVIDERS: PCP Physician Assistant Medical; Referring Provider Nurse Practitioner Family; Visit Provider Nurse Practitioner Family
DX: R91.8 Other nonspecific abnormal finding of lung field (principal)
CPT/HCPCS: 71250

== ENCOUNTER 2025-08-27 13:29 | Outpatient (RCR) | payer MEDICAID, SELFPAY | END 2025-09-06 23:59 | disposition home or self-care (01) | LOC: SCTC 13:29 | PROVIDERS: PCP Physician Assistant Medical; Referring Provider Physician Assistant Medical; Visit Provider Nurse Practitioner Family | DX: D50.9 Iron deficiency anemia, unspecified (principal); E53.8 Deficiency of other specified B group vitamins; Z98.84 Bariatric surgery status; R91.8 Other nonspecific abnormal finding of lung field; N18.9 Chronic kidney disease, unspecified | CPT/HCPCS: 96372; 99212; J3420; G0463 ==

== ENCOUNTER 2025-09-10 13:56 | Outpatient (RCR) | payer MEDICAID, SELFPAY | END 2025-10-07 23:59 | disposition home or self-care (01) | LOC: SCTC 13:56 | PROVIDERS: PCP Physician Assistant Medical; Referring Provider Physician Assistant Medical; Visit Provider Nurse Practitioner Family | DX: E53.8 Deficiency of other specified B group vitamins (principal); D50.9 Iron deficiency anemia, unspecified; Z98.84 Bariatric surgery status; N18.9 Chronic kidney disease, unspecified; R91.8 Other nonspecific abnormal finding of lung field | CPT/HCPCS: 96372; J3420 ==